=== PATIENT | male | born 1985 | race African-American/Black ===

== ENCOUNTER 2017-10-07 10:07 | Observation (INO) | payer OTHER ==
[~2017-10-07] VITALS: Ht 180.3 cm; Wt 108.7 kg
[2017-10-07] MEDS ORDERED: PAXIL40 MG PO (11:00)
[2017-10-07 11:03] LABS: BASO # 0.1 (0.0-0.2); BASO % 0.5 % (0.0-2.0); EOS # 0.1 (0.0-0.7); EOS % 0.7 % (0-4.0); GRAN # 9.2 (1.4-6.5); GRAN % 78.2 % (42.2-75.2); HEMATOCRIT 40.1 % (42.0-52.0); HEMOGLOBIN 13.8 g/dl (13.5-18.0); LYMPH # 1.8 (1.2-3.4); LYMPH % 15.2 % (20.0-51.0); MEAN CELL VOLUME 92 fl (80.0-100.0); MEAN CORPUSCULAR HEMOGLOBIN 32 pg (27.0-31.0); MEAN CORPUSCULAR HGB CONC 34 g/dl (33.0-37.0); MEAN PLATELET VOLUME 9.6 fl (7.4-10.4); MONO # 0.5 (0.1-0.6); MONO % 4.6 % (1.7-9.3); PLATELET COUNT 309 K/mm3 (130-400); RED BLOOD COUNT 4.36 M/mm3 (4.20-5.60); REDCELL DISTRIBUTION WIDTH-CV 12.2 % (11.5-14.5)
[2017-10-07 11:11] LABS: COLLECTION METHOD CLEAN CATCH
[2017-10-07 11:15] LABS: BILIRUBIN,TOTAL 1.2 mg/dL (0.0-1.0); CALCIUM 8.8 mg/dL (8.4-10.2); CREATININE, serum 1.23 mg/dL (0.66-1.25); POTASSIUM 3.5 mmol/L (3.4-5.0); TOTAL PROTEIN 7.5 gm/dL (6.4-8.2)
[2017-10-07 11:17] LABS: MUCOUS Present /lpf; PH 6 (5-8); SQUAMOUS EPITHELIAL None Seen /hpf; URINE APPEARANCE Clear; URINE BACTERIA None Seen /hpf; URINE BILIRUBIN Negative (NEGATIVE); URINE BLOOD Negative (NEGATIVE); URINE COLOR Yellow; URINE GLUCOSE Negative (NEGATIVE); URINE KETONE Negative (NEGATIVE); URINE LEUKOCYTE ESTERASE Negative (NEGATIVE); URINE NITRATE Negative (NEGATIVE); URINE PROTEIN(semi-quant) Negative (NEGATIVE); URINE RBC 0-2 /hpf; URINE UROBILINOGEN Negative (NEGATIVE)
[2017-10-07 12:19] LABS: INR 0.8 (0.8-3.0); PROTHROMBIN TIME 9.6 SECONDS (9.7-12.8)
[2017-10-07 12:45] VITALS: BP 141/65; PULSE 94; TEMP 98.3
[2017-10-08] VITALS (7 sets, daily range): BP systolic 109–137; BP diastolic 60–80; PULSE 74–103; TEMP 98.1–98.7
[2017-10-08 06:27] LABS: HEMATOCRIT 35.3 % (42.0-52.0)
[2017-10-09 04:28] VITALS: BP 113/63; PULSE 83; TEMP 98.1
[2017-10-09] MEDS ORDERED: ASPI325T6 PO (07:01)
[2017-10-09] MEDS ORDERED: PERCOCET 325 MG1 TA2 PO (07:02)
[2017-10-09] MEDS ORDERED: COLACE 100100 MG/CAP PO (07:03)
[2017-10-09 08:43] VITALS: BP 129/62; PULSE 93; TEMP 98.5
[2017-10-09 12:09] VITALS: BP 146/66; PULSE 107; TEMP 98.4
== END 2017-10-09 16:24 | disposition home or self-care (01) ==
LOC: COL.ER 10:07 → EDBD 10:08 → SURG 11:25
PROVIDERS: Emergency Medicine; Orthopaedic Surgery Sports Medicine
DX: S43.101A Unspecified dislocation of right acromioclavicular joint, initial encounter (principal); S72.352A Displaced comminuted fracture of shaft of left femur, initial encounter for closed fracture; S01.81XA Laceration without foreign body of other part of head, initial encounter; V29.40XA Motorcycle driver injured in collision with unspecified motor vehicles in traffic accident, initial encounter
CPT/HCPCS: A9284; C1713; C1769; G0378; G0463; G8978-GP; G8979-GP; G8987-GO; G8988-GO; J0690; J1100; J1170; J1885; J2405; J2704; J3010; J7030; J7120